=== PATIENT | female | born 1975 | race Caucasian/White ===

== ENCOUNTER 2019-03-27 13:37 | Emergency (ER) | payer BC, OTHER ==
[2019-03-27 13:43] VITALS: BP 131/85; PULSE 81; RESP 18; TEMP 97.6
--- NOTE | 2019-03-27 13:54 | ED ---
General Adult HPI - General Chief complaint: Recheck/Abnormal Lab/Rx Stated complaint: [facility]-Needlestick Time Seen by Provider: 03/27/19 13:42 Source: patient, RN notes reviewed Mode of arrival: ambulatory Limitations: no limitations - History of Present Illness Initial comments: 43-year-old female presented for needlestick. Patient states she works at [employer] was given flu shots. Patient states that she given a shot 1 over the Band-Aid on and states that she poked her left hand. Patient states is more an abrasion across her hand. Patient states she is unsure when her last tetanus was. No reported communicable diseases from patient. Patient sent here for testing. - Related Data Home Medications Medication Instructions Recorded Confirmed No Known Home Medications 03/27/19 03/27/19 Allergies Allergy/AdvReac Type Severity Reaction Status Date / Time codeine Allergy Nausea & Verified 03/27/19 14:08 Vomiting Review of Systems ROS Statement: Those systems with pertinent positive or pertinent negative responses have been documented in the HPI. ROS Other: All systems not noted in ROS Statement are negative. Past Medical History Past Medical History: No Reported History History of Any Multi-Drug Resistant Organisms: None Reported Past Surgical History: No Surgical Hx Reported Past Psychological History: No Psychological Hx Reported Smoking Status: Never smoker Past Alcohol Use History: None Reported Past Drug Use History: None Reported General Exam Limitations: no limitations General appearance: alert, in no apparent distress Head exam: Present: atraumatic, normocephalic, normal inspection Respiratory exam: Present: normal lung sounds bilaterally. Absent: respiratory distress, wheezes, rales, rhonchi, stridor Cardiovascular Exam: Present: regular rate, normal rhythm, normal heart sounds. Absent: systolic murmur, diastolic murmur, rubs, gallop, clicks Extremities exam: Present: other (Abrasion noted the left hand by the index finger) Skin exam: Present: warm, dry, intact, normal color. Absent: rash Course Vital Signs 03/27/19 13:39 Temperature 97.6 F Pulse Rate 81 Respiratory 18 Rate Blood Pressure 131/85 O2 Sat by Pulse 100 Oximetry Medical Decision Making - Medical Decision Making Patient had rapid HIV, hepatitis testing. Patient up-to-date on tetanus. Patient declines HIV prophylaxis. Disposition Clinical Impression: Needlestick injury accident Disposition: HOME SELF-CARE Condition: Stable Instructions (If sedation given, give patient instructions): Needle Stick Injuries (ED) Additional Instructions: Please return to the Emergency Department if symptoms worsen or any other concerns. Is patient prescribed a controlled substance at d/c from ED?: No Referrals: Sebas Farris DO [Primary Care Provider] - 1-2 days Time of Disposition: 13:54
[2019-03-27] MEDS ORDERED: DIPH,PERTUS(ACELL)TETVAC-LF 0.5 ML VIAL IM ONE (14:08)
[2019-03-27 19:44] LABS: Hepatitis B Surface AB- Quant 33.5 mIU/mL; Hepatitis B Surface Antibody Reactive (Non-Reactive); Hepatitis C IgG Antibody Non-Reactive (Non-Reactive)
[2019-03-27 20:21] LABS: HIV 1 AB Non-Reactive (Non-Reactive); HIV 2 AB Non-Reactive (Non-Reactive); HIV AB P24 Non-Reactive (Non-Reactive); HIV P24 AG Non-Reactive (Non-Reactive)
== END 2019-03-27 14:28 | disposition home or self-care (01) ==
LOC: EC 13:37
DX: S60.512A Abrasion of left hand, initial encounter (principal); Z77.21 Contact with and (suspected) exposure to potentially hazardous body fluids; Z88.5 Allergy status to narcotic agent; W46.0XXA Contact with hypodermic needle, initial encounter; Y92.69 Other specified industrial and construction area as the place of occurrence of the external cause; Y99.0 Civilian activity done for income or pay
CPT/HCPCS: 36415; 86706; 86803; 87390; 99283

== ENCOUNTER → 2020-05-12 | Outpatient (CLI) | payer BC ==
--- NOTE | 2020-05-13 07:52 | MM ---
Reason for exam: screening (asymptomatic). Baseline mammogram. History: Family history of breast cancer in 2 paternal cousins. Took hormonal contraceptives for 2 months. Physical Findings: Nurse did not find any significant physical abnormalities on exam. MG Screening Mammo w CAD Bilateral CC, MLO, and XCCL view(s) were taken. The breast tissue is heterogeneously dense. This may lower the sensitivity of mammography. Finding: There is a 6 mm equal density (isodense), obscured mass in the upper outer quadrant of the left breast. These results were verbally communicated with the patient and result sheet given to the patient on 05/12/20. ASSESSMENT: Incomplete: need additional imaging evaluation, BI-RAD 0 RECOMMENDATION: Special view mammogram of the left breast.
--- NOTE | 2020-05-13 07:52 | MM ---
Reason for exam: additional evaluation requested from abnormal screening. History: Family history of breast cancer in 2 paternal cousins. Took hormonal contraceptives for 2 months. Physical Findings: Breast exam preformed at baseline screening. MG Work Up Mamm w CAD LT Spot compression CC, spot compression MLO, and LM view(s) were taken of the left breast. The breast tissue is heterogeneously dense. This may lower the sensitivity of mammography. There is a 6 mm equal density (isodense), obscured mass in the upper outer quadrant of the left breast. These results were verbally communicated with the patient and result sheet given to the patient on 05/12/20. ASSESSMENT: Incomplete: need additional imaging evaluation, BI-RAD 0 RECOMMENDATION: Ultrasound of the left breast.
--- NOTE | 2020-05-13 07:56 | USB ---
Reason for exam: additional evaluation requested from abnormal screening. History: Family history of breast cancer in 2 paternal cousins. Took hormonal contraceptives for 2 months. US Breast Limited LT Left limited breast ultrasound including focal area of concern, retroareolar and axilla demonstrates a 7 x 5 x 8mm lobular, mixed lesion at 2 o'clock and a 6 x 4 x 7mm lobular, cystic cluster at 3 o'clock. These results were verbally communicated with the patient and result sheet given to the patient on 05/12/20. ASSESSMENT: Suspicious, BI-RAD 4 RECOMMENDATION: Ultrasound core biopsy of the left breast. (2 o'clock) Called Dr. Bee's office with mammographic findings and has scheduled an appointment for the patient for 05/27/20 at 4:[address] White. Biopsy scheduled for 05/20/20 at 12:00. PRELIMINARY REPORT CALLED AND FAXED TO DR. WHITE ON 05/13/20.
== END | disposition home or self-care (01) ==
LOC: RADMAMWWP 14:11
PROVIDERS: ATTEND Obstetrics & Gynecology
DX: Z12.31 Encounter for screening mammogram for malignant neoplasm of breast (principal); R92.8 Other abnormal and inconclusive findings on diagnostic imaging of breast
CPT/HCPCS: 77065; 77067

== ENCOUNTER → 2020-05-20 | Day surgery (SDC) | payer BC ==
[2020-05-20 12:14] VITALS: RESP 16
[2020-05-20 13:53] VITALS: BP 141/82; PULSE 70; TEMP 98.5
--- NOTE | 2020-05-20 14:56 | USB ---
EXAMINATION TYPE: US biopsy breast VAD LT DATE OF EXAM: 05/20/2020 CLINICAL HISTORY: R94.5 abnormal liver function tests. TECHNIQUE: Ultrasound guided core biopsy of left breast. COMPARISON: Ultrasound 05/12/2020 FINDINGS: The procedure of ultrasound guided core biopsy was explained to the patient. Benefits, alternatives, and risks were discussed. An informed consent was then obtained. The patient was placed in supine positioning for imaging and for the procedure. The overlying skin was prepped and draped in usual sterile fashion. Lidocaine was used as anesthetic into the skin and subcutaneous tissue up to area of concern in the left breast. Under ultrasound guidance, a 12-gauge vacuum assisted biopsy gun device was used to obtain 3 core samples. Following this, a biopsy clip was left in lesion. The patient tolerated the procedure well without any immediate complication. The patient was kept in the radiology department for short stay after the procedure and then discharged home in stable condition. IMPRESSION: Successful, uncomplicated ultrasound guided core biopsy of area of concern in the left breast, full pathology results to follow. Pathology Results: Benign LEFT BREAST, TWO O'CLOCK, ULTRASOUND GUIDED CORE BIOPSY: Fibroadenoma and background proliferative fibrocystic changes including sclerosing adenosis, cysts and apocrine metaplasia. Recommendation Follow up mammogram of the left breast in 6 months. EFFIE
--- NOTE | 2020-05-21 09:45 | MM ---
Reason for exam: additional evaluation requested from abnormal screening. Last mammogram was performed less than 1 month ago. History: Family history of breast cancer in 2 paternal cousins. Took hormonal contraceptives for 2 months. MG Diagnostic Mammo LT Wo CAD CC and LM view(s) were taken of the left breast. Prior study comparison: May 12, 2020, bilateral MG screening mammo w CAD. May 12, 2020, left breast MG work up mamm w CAD LT. ASSESSMENT: Post procedure mammogram for marker placement RECOMMENDATION: Ultrasound of the left breast in 6 months. PENDING PATHOLOGY RESULTS.
== END ==
LOC: RADUSWWP 11:49
PROVIDERS: ATTEND Surgery
DX: D24.2 Benign neoplasm of left breast (principal); N60.22 Fibroadenosis of left breast; N60.82 Other benign mammary dysplasias of left breast; N60.12 Diffuse cystic mastopathy of left breast; Z80.3 Family history of malignant neoplasm of breast; Z79.3 Long term (current) use of hormonal contraceptives
CPT/HCPCS: 88305; 77065; 19083; A4648; J2001

== ENCOUNTER → 2020-07-16 | Outpatient (CLI) | payer BC ==
--- NOTE | 2020-07-22 13:58 | MR ---
MR abdomen with and without contrast HISTORY: Portal vein thrombosis Multiplanar multisequence and postcontrast images obtained through the abdomen following [address] IV. Correlation to CT abdomen pelvis 07/05/2020 from outside institution Cystic foci within the liver are again noted, lesions. T2 bright, at the lateral segment of the left lobe cystic focus is multilocular and measures 2.5 cm in greatest dimension, T1 hypointense. Post con trast images show left portal vein thrombosis, right portal vein and main portal vein are patent, hep atic veins are patent. Differences in signal intensity within the left lobe of the liver likely refle ct the orbital vein thrombosis. There is no evident mass. Gallbladder is normal. Lung bases show no effusion. Aorta shows normal enhancement. There is no ascites. The spleen is not e nlarged. Adrenal glands, pancreas, kidneys are stable and right kidney shows a prominent extrarenal p gladys. No retroperitoneal adenopathy. No evident bowel obstruction. IMPRESSION: Findings are stable compared to previous exam. Left portal vein shows stable thrombosis sonya romero.
== END | disposition home or self-care (01) ==
LOC: RADMRIMAIN 13:43
PROVIDERS: ATTEND Nurse Practitioner Adult Health
DX: I81 Portal vein thrombosis (principal)
CPT/HCPCS: 74183; A9585

== ENCOUNTER → 2020-12-01 | Outpatient (CLI) | payer BC ==
--- NOTE | 2020-12-01 14:50 | USB ---
EXAMINATION TYPE: US breast limited LT DATE OF EXAM: 12/01/2020 COMPARISON: 05/20/2020, 05/12/2020 CLINICAL HISTORY: R92.8 ABN MANMMO. Findings: In the left breast at 2:00, there is a 0.6 x 0.5 x 0.6 cm ovoid hypoechoic mass which has slightly de creased in size since the prior examination at which point it measured 0.7 x 0.5 x 0.8 cm and was pre viously biopsied with benign results. In the left breast at 3:00, there is an unchanged cluster of cysts. IMPRESSION: No sonographic evidence for malignancy. BI-RADS 2, benign. Recommendation: Bilateral screening mammogram is recommended in May 2021.
== END | disposition home or self-care (01) ==
LOC: RADUSWWP 13:28
PROVIDERS: ATTEND Surgery
DX: R92.8 Other abnormal and inconclusive findings on diagnostic imaging of breast (principal)

== ENCOUNTER → 2021-04-09 | Outpatient (CLI) | payer BC ==
--- NOTE | 2021-04-10 09:49 | CT ---
EXAMINATION TYPE: CT abdomen w con DATE OF EXAM: 04/09/2021 COMPARISON: MR abdomen 07/16/2020, CT 07/05/2020 HISTORY: portal vein thrombosis CT DLP: 1222.5 mGycm Automated exposure control for dose reduction was used. TECHNIQUE: Helical acquisition of images was performed from the lung bases through the top of iliac crest to include entire abdomen. CONTRAST: Performed with Oral Contrast and with IV Contrast, patient injected with 100 mL of Isovue 300. FINDINGS: LUNG BASES: No significant abnormality is appreciated. LIVER/GB: No significant interval change is appreciated. Cystic foci again noted, left lobe of the li roderick appears somewhat atrophic, left portal vein is not seen as on prior PANCREAS: No significant abnormality is seen. SPLEEN: No significant abnormality is seen. ADRENALS: No significant abnormality is seen. KIDNEYS: No significant abnormality is seen. BOWEL: No significant abnormality is seen. LYMPH NODES: No significant abnormality is appreciated. OSSEOUS STRUCTURES: No significant abnormality is seen. FREE AIR: No Free Air visible ASCITES: None visible. RETROPERITONEAL ADENOPATHY: No Retroperitoneal Adenopathy visible. OTHER: Visualized portions of the uterus are bulky, there is a cystic focus within the left adnexal r egion measuring 2.6 cm as well as a large cystic focus associated with the myometrium which is partia lly visualized, similar focus seen on prior CT. IMPRESSION: INDETERMINATE FOCI ASSOCIATED WITH THE UTERUS AND OVARY, SOMEWHAT ATYPICAL APPEARANCE FOR FIBROIDS, C ONSIDER PELVIC MRI, SUPERVISOR VENEER CONSULT. THE LIVER SHOWS A STABLE APPEARANCE.
== END | disposition home or self-care (01) ==
LOC: RADCTMAIN 16:44
PROVIDERS: ATTEND Internal Medicine Hematology & Oncology
DX: I81 Portal vein thrombosis (principal); D25.9 Leiomyoma of uterus, unspecified
CPT/HCPCS: 74160; Q9967

== ENCOUNTER → 2021-05-31 | Outpatient (CLI) | payer BC ==
[2021-05-31 19:36] LABS: HCT 43.6 % (37.2-46.3); HGB 13.7 g/dL (12.0-15.0); MCH 31.1 pg (27.0-32.0); MCHC 31.4 g/dL (32.0-37.0); MCV 99.1 fL (80.0-97.0); Mean Platelet Volume 9.4 fL (9.5-12.2); Platelet Count 351 X 10*3/uL (140-440); RDW 13.1 % (11.5-14.5); WBC 7.58 X 10*3/uL (4.50-10.00)
[2021-05-31 22:21] LABS: % Iron Saturation 49.36 (12.00-45.00); Chol/HDL Ratio 3.49 Ratio; Iron 123 ug/dL (50-170); LDL Cholesterol,Calculated 131.9 mg/dL (0.0-131.0); Total Iron Binding Capacity 249 ug/dL (228-460)
[2021-05-31 22:22] LABS: ALT 16 U/L (8-44); AST 16 U/L (13-35); African American GFR (CKD) 111.5 (60.0-200.0); Albumin 4.3 g/dL (3.8-4.9); Albumin/Globulin Ratio 2.09 (1.60-3.17); Alkaline Phosphatase 80 U/L (41-126); BUN/Creat Ratio 17.48 Ratio (12.00-20.00); Blood Urea Nitrogen 13.2 mg/dL (9.0-27.0); Calcium 8.9 mg/dL (8.7-10.3); Carbon Dioxide 21.7 mmol/L (20.0-27.5); Chloride 107 mmol/L (96-109); Globulin 2.1 g/dL (1.6-3.3); Glucose 92 mg/dL (70-110); Non-African American GFR(CKD) 96.2 (60.0-200.0); Potassium 4.2 mmol/L (3.5-5.5); Sodium 140 mmol/L (135-145); Total Protein 6.4 g/dL (6.2-8.2)
== END | disposition home or self-care (01) ==
LOC: LABWHC1 11:02
PROVIDERS: ATTEND Family Medicine
DX: Z00.00 Encounter for general adult medical examination without abnormal findings (principal)
CPT/HCPCS: 36415; 80053; 80061; 82728; 83036; 83540; 83550; 84443; 85027

== ENCOUNTER → 2021-09-03 | Outpatient (CLI) | payer BC ==
[2021-09-03 17:57] LABS: Basophils # (A) 0.06 X 10*3/uL (0.00-0.10); Basophils % (A) 0.6 %; Eosinophils # (A) 0.07 X 10*3/uL (0.04-0.35); Eosinophils % (A) 0.7 %; HCT 45.2 % (37.2-46.3); HGB 14.9 g/dL (12.0-15.0); Immature Grans, Automated 0.3 %; Lymphocytes # (A) 2.39 X 10*3/uL (0.90-5.00); Lymphocytes % (A) 24.5 %; MCH 31.7 pg (27.0-32.0); MCV 96.2 fL (80.0-97.0); Mean Platelet Volume 9.2 fL (9.5-12.2); Monocytes # (A) 0.65 X 10*3/uL (0.20-1.00); Monocytes % (A) 6.7 %; NRBC Per 100 WBC 0 /100 WBCS (0.0-0.0); Neutrophils # (A) 6.54 X 10*3/uL (1.80-7.70); Neutrophils % (A) 67.2 %; Platelet Count 374 X 10*3/uL (140-440); RDW 12.2 % (11.5-14.5); WBC 9.74 X 10*3/uL (4.50-10.00)
== END | disposition home or self-care (01) ==
LOC: LABWHC1 12:20
PROVIDERS: ATTEND Obstetrics & Gynecology
DX: Z01.812 Encounter for preprocedural laboratory examination (principal); N92.1 Excessive and frequent menstruation with irregular cycle
CPT/HCPCS: 36415; 85025

== ENCOUNTER 2021-09-10 07:39 | Day surgery (SDC) | payer BC ==
[2021-09-07 16:00] VITALS: BMI 38.0
[~2021-09-10 07:39] MED LIST: DEXAMETHASONE SOD PHOSPHATE 4 MG/ML 1 ML VIAL IV ONE; HYDROmorphone 0.5 MG/0.5 ML SYRINGE IVP PRN; LACTATED RINGERS 1,000 ML IV SCH; LIDOCAINE 1% (10MG/ML) FOR IV START INTRADERMA PRN; MIDAZOLAM 2 MG/2 ML VIAL IV PRN; ONDANSETRON 4 MG/2 ML VIAL IVP ONE; Pre Op ABX Message 1 EACH MISC MISCELLANE ONE
[2021-09-10 08:06] VITALS: RESP 16
[2021-09-10] MEDS ORDERED: SCOPOLAMINE 1.5MG/72HR PATCH TRANSDERM ONE (08:19)
[2021-09-10] MEDS ORDERED: LIDOCAINE 1% INJ 10MG/ML (20 ML MDV) ONE (09:20)
[2021-09-10] MEDS ORDERED: NEOSTIGMINE 1 MG/ML 10 ML VIAL ONE (09:20)
[2021-09-10] MEDS ORDERED: MIDAZOLAM 2 MG/2 ML VIAL ONE (09:20)
[2021-09-10] MEDS ORDERED: GLYCOPYRROLATE 0.2 MG/ML 2 ML VIAL ONE (09:20)
[2021-09-10] MEDS ORDERED: diphenhydrAMINE 50 MG/ML 1 ML VIAL ONE (09:20)
[2021-09-10] MEDS ORDERED: fentaNYL (PF) 50 MCG/ML 2 ML AMP ONE (09:20)
[2021-09-10] MEDS ORDERED: PROPOFOL 10 MG/ML 20 ML VIAL IV ONE (09:20)
[2021-09-10] MEDS ORDERED: SUCCINYLCHOLINE CHLORIDE 100 MG/5 ML SYR IV ONE (09:20)
[2021-09-10] MEDS ORDERED: KETOROLAC 15 MG/ML 1 ML VIAL ONE (09:20)
[2021-09-10] MEDS ORDERED: ROCURONIUM 10 MG/ML (5 ML VIAL) IV ONE (09:20)
[2021-09-10] MEDS ORDERED: BUPIVACAINE (PF) 0.25% 30 ML VIAL SQ ONE ×3 (09:43→10:01)
[2021-09-10] MEDS ORDERED: IBUPROFEN 600 MG TAB PO PRN (10:22)
[2021-09-10] MEDS ORDERED: SIMETHICONE 80 MG CHEWABLE PO PRN (10:22)
[2021-09-10] MEDS ORDERED: METOCLOPRAMIDE 5 MG/ML 2 ML VIAL IVP PRN (10:22)
[2021-09-10] MEDS ORDERED: diphenhydrAMINE 50 MG/ML 1 ML VIAL IVP PRN (10:22)
[2021-09-10] MEDS ORDERED: ONDANSETRON 4 MG/2 ML VIAL IVP PRN (10:22)
[2021-09-10] MEDS ORDERED: KETOROLAC 15 MG/ML 1 ML VIAL IVP PRN (10:22)
[2021-09-10 10:31] VITALS: TEMP 98.7
--- NOTE | 2021-09-10 10:33 | P.OP ---
Date of Procedure: 09/10/21 Preoperative Diagnosis: #1. Menometrorrhagia #2. Dysmenorrhea #3. Fibroid uterus #4. Undesired fertility Postoperative Diagnosis: Same Procedure(s) Performed: #1. Laparoscopic bilateral tubal occlusion with Filshie clips #2. Diagnostic hysteroscopy #3. D&C in #4. NovaSure endometrial ablation Anesthesia: GETA Surgeon: Michael Bee Estimated Blood Loss (ml): 5 IV fluids (ml): 400 Urine output (ml): 200 Pathology: other (Endometrial curettings) Condition: stable Disposition: PACU Operative Findings: After pelvic examination demonstrated roughly 4-5 week midplane uterus with a palpable roughly 5 cm right fundal probable subserosal fibroid with normal adnexa bilaterally. Intraoperatively, this was confirmed with laparoscope. There was a roughly 4-5 cm right fundal fibroid which was subserosal in nature with an otherwise relatively normal-appearing uterus below it. Bilateral tubes and ovaries were normal and a Filshie clip was placed firmly across the isthmic portion of each fallopian tube. There is no pathology noted otherwise in the pelvis to include endometriosis. The small bowel, large bowel, liver, gallbladder, and diaphragm appeared normal to inspection. The appendix was not seen. The uterus sounded to approximately 9 cm with a cervical length of 3.5 cm. The hysteroscope demonstrated moderate shaggy endometrium. The tubal ostia were never clearly seen but there was no evidence of any pathology aside from the shaggy endometrium. As a result, endometrial curettage was carried out and the curettings sent to pathology for diagnosis. The settings for the NovaSure tool over a length of 5.5 cm, a width of 4.2 cm for a total power 127 W. After a run time of 55 seconds, the patient read "procedure complete." The postprocedural result appeared excellent. The patient is a poor candidate for vaginal hysterectomy and, should it become necessary, would best benefit from a da Jj approach. Description of Procedure: Patient was prepped and draped in usual fashion after general endotracheal anesthesia was administered by anesthesiologist. A speculum was placed in the anterior lip of the cervix grasped with a tilted tenaculum allowing placement of an acorn cannula for manipulation. The bladder was draining approximately 200 mL of clear sigrid urine. Attention was then turned to the abdomen where a roughly 5 mm incision was made in a vertical fold of the umbilicus allowing insertion of a 5 mm optical trocar under direct visualization with initial difficulty in preperitoneal placement but was ultimately able to be placed intraperitoneally. A pneumoperitoneum was instilled and Trendelenburg assisting utilized. A site was selected in the midline approximate 4-5 cm above the umbilicus where an 8 mm incision was made in the transverse plane allowing insertion of an 8 mm optical trocar under direct vision station without difficulty. The blunt probe and Trendelenburg positioning were utilized to sweep the bowel from the pelvis and the findings are as noted above with a roughly 5 cm right fundal subserosal fibroid above the level of the fallopian tube with a roughly normal appearing uterus below the fibroid. The tubes and ovaries were normal to inspection as was the rest the pelvis. The probe was replaced with a Filshie clip applicator which was utilized to place a Filshie clip firmly across the isthmic portion of each fallopian tube approximately 2-3 cm from the cornu on each side. The remainder of the abdomen was explored with normal findings as noted above. Ports and the ports removed. The incisions were closed with interrupted subcuticular stitches of 4-0 Vicryl followed by Steri-Strips and Band-Aids. Prior to placement of the sutures and Band-Aids, a total of 10 mL of quarter percent Marcaine without epinephrine was equally infused between the 2 incisions. Attention was returned to the vagina where a weighted speculum was placed and the acorn cannula removed. The uterus and cervix are sounded to 9 cm and 3.5 cm respectively. Serial dilation was carried out to admit the diagnostic hysteroscope which was placed into the cavity and then the cavity distended with saline. The findings were as noted above with a moderate amount of shaggy endometrial tissue noted and a possible polyp noted near the cornu on the right lateral side. The tubal ostia were never clearly seen but centimeters cavity appeared otherwise normal. All instrumentation was then removed and the polyp forceps introduced which was able to remove a small amount of tissue. The decision was made proceed with curettage and a medium sharp curet was placed into the endometrial cavity which was then curetted thoroughly and circumferentially onto a Telfa placed in the vagina. Minimal tissue was returned. The Telfa was then passed for pathological diagnoses and the NovaSure tool placed into the endometrial cavity, opened, and seated well. The settings were as noted above with a length of 5.5 cm, a width of 4.2 cm for a total power 127 W. The cavity check was attempted and passed without difficulty and the tool was enabled. The run was started and, after a run time of 55 seconds, the base unit read "procedure complete." The 2 was closed, removed, and discarded and the diagnostic scope replaced within the cavity. The result appeared to be excellent. All instrumentation was then removed. There was no ongoing bleeding from either the cervix or the tenaculum sites. Estimated blood loss for the case was approximate 5 mL. The patient is a poor candidate for vaginal hysterectomy and would best benefit from a da Jj approa ch should it become necessary in the future. All sponge, instrument, needle counts were correct. The patient tolerated the procedure well and proceeded to the recovery room in stable condition.
[2021-09-10] MEDS: LACTATED RINGERS 1,000 ML IV SCH ×2 (11:01→11:23)
[2021-09-10 12:31] VITALS: BP 104/60; PULSE 65
== END 2021-09-10 12:59 | disposition home or self-care (01) ==
LOC: OR 07:39
PROVIDERS: ATTEND Obstetrics & Gynecology
DX: Z30.2 Encounter for sterilization (principal); N92.1 Excessive and frequent menstruation with irregular cycle; D25.9 Leiomyoma of uterus, unspecified
CPT/HCPCS: 58670; 58563; 81025; J2250; J1200; J1100; J2710; J2405; J2001; J3010; J1885; J0330; J2704; J1170; 88305

== ENCOUNTER → 2022-02-16 | Outpatient (CLI) | payer BC ==
--- NOTE | 2022-02-18 11:24 | MM ---
Reason for Exam: Screening (asymptomatic). Last mammogram was performed 1 year(s) and 9 month(s) ago. Patient History: Menarche at age 12. First Full-Term at age 27. Hormonal Contraceptives for 2 months. 05/20/2020, Benign Core Biopsy on the left side. Paternal cousin had breast cancer. Paternal cousin had breast cancer. Risk Values: Bonnie 5 year model risk: 1.6%. NCI Lifetime model risk: 13.9%. Prior Study Comparison: 05/12/2020 Bilateral Screening Mammogram, [facility]. 05/12/2020 Left Diagnostic Mammogram, [facility]. 05/20/2020 Left Diagnostic Mammogram, [facility]. Tissue Density: The breast tissue is heterogeneously dense. This may lower the sensitivity of mammography. Findings: Analyzed By CAD. Previous mammotome biopsy in the left breast. No discrete abnormality. Overall Assessment: Benign, BI-RAD 2 Management: Screening Mammogram of both breasts in 1 year. A clinical breast exam by your physician is recommended on an annual basis and results should be correlated with mammographic findings. Electronically signed and approved by: Stefano Ramirez M.D. Radiologist
== END | disposition home or self-care (01) ==
LOC: RADMAMWWP 16:01
PROVIDERS: ATTEND Obstetrics & Gynecology
DX: Z12.31 Encounter for screening mammogram for malignant neoplasm of breast (principal); Z80.3 Family history of malignant neoplasm of breast
CPT/HCPCS: 77063; 77067

== ENCOUNTER → 2022-06-10 | Outpatient (CLI) | payer BC ==
[2022-06-10 19:10] LABS: Basophils # (A) 0.07 X 10*3/uL (0.00-0.10); Basophils % (A) 0.5 %; Eosinophils # (A) 0.01 X 10*3/uL (0.04-0.35); Eosinophils % (A) 0.1 %; HCT 46.5 % (37.2-46.3); HGB 15.1 g/dL (12.0-15.0); Immature Grans, Automated 0.5 %; Lymphocytes # (A) 3.13 X 10*3/uL (0.90-5.00); Lymphocytes % (A) 23.7 %; MCH 31.5 pg (27.0-32.0); MCHC 32.5 g/dL (32.0-37.0); MCV 96.9 fL (80.0-97.0); Mean Platelet Volume 9.4 fL (9.5-12.2); Monocytes # (A) 0.72 X 10*3/uL (0.20-1.00); Monocytes % (A) 5.5 %; NRBC Per 100 WBC 0 /100 WBCS (0.0-0.0); Neutrophils # (A) 9.22 X 10*3/uL (1.80-7.70); Neutrophils % (A) 69.7 %; Platelet Count 364 X 10*3/uL (140-440); RDW 12.5 % (11.5-14.5); WBC 13.21 X 10*3/uL (4.50-10.00)
[2022-06-10 20:13] LABS: Chol/HDL Ratio 3.85 Ratio; LDL Cholesterol,Calculated 159.5 mg/dL (0.0-131.0)
[2022-06-10 20:14] LABS: ALT 25 U/L (8-44); AST 32 U/L (13-35); African American GFR (CKD) 107.1 (60.0-200.0); Albumin 4.5 g/dL (3.8-4.9); Albumin/Globulin Ratio 1.92 (1.60-3.17); Alkaline Phosphatase 70 U/L (41-126); BUN/Creat Ratio 17.53 Ratio (12.00-20.00); Blood Urea Nitrogen 13.6 mg/dL (9.0-27.0); Carbon Dioxide 20.2 mmol/L (20.0-27.5); Chloride 106 mmol/L (96-109); Globulin 2.3 g/dL (1.6-3.3); Glucose 75 mg/dL (70-110); Non-African American GFR(CKD) 92.4 (60.0-200.0); Potassium 4.4 mmol/L (3.5-5.5); Sodium 140 mmol/L (135-145); Total Protein 6.8 g/dL (6.2-8.2)
== END | disposition home or self-care (01) ==
LOC: LABWHC1 09:53
PROVIDERS: ATTEND Nurse Practitioner Family
DX: Z00.00 Encounter for general adult medical examination without abnormal findings (principal); K21.9 Gastro-esophageal reflux disease without esophagitis
CPT/HCPCS: 36415; 80053; 80061; 83036; 84439; 84443; 85025

== ENCOUNTER → 2023-02-21 | Outpatient (CLI) | payer BC, OTHER ==
--- NOTE | 2023-02-22 16:09 | MM ---
Reason for Exam: Screening (asymptomatic). Last screening mammogram was performed 12 month(s) ago. Patient History: Menarche at age 12. First Full-Term at age 27. Hormonal Contraceptives for 2 months. 05/20/2020, Benign Core Biopsy on the left side. Paternal cousin had breast cancer. Paternal cousin had breast cancer. Risk Values: Bonnie 5 year model risk: 1.5%. NCI Lifetime model risk: 13.6%. Prior Study Comparison: 05/12/2020 Left Diagnostic Mammogram, [facility]. 05/20/2020 Left Diagnostic Mammogram, [facility] 02/16/2022 Bilateral MG 3D screening mammo w/cad, [facility]. Tissue Density: The breast tissue is heterogeneously dense. This may lower the sensitivity of mammography. Findings: Analyzed By CAD. Pattern appears symmetrical and stable. A core marker is within the left breast. There is a oval density with obscured margins within the 9:00 middle position right breast. This measures 0.8 cm and is located 6 cm from the nipple. Additional evaluation with ultrasound is recommended. Diagnostic imaging may be required. Left breast: No suspicious groups of microcalcifications, spiculated or lobular masses, architectural distortion or other secondary signs of malignancy are mammographically apparent. Overall Assessment: Incomplete: need additional imaging evaluation, BI-RAD 0 Management: Diagnostic Breast Ultrasound of the right breast. A negative mammogram report should not preclude additional follow up of suspicious palpable abnormalities. Patient should continue monthly self breast exam. A clinical breast exam by your physician is recommended on an annual basis and results should be correlated with mammographic findings. Electronically signed and approved by: Choco Rivera D.O. Radiologis
== END | disposition home or self-care (01) ==
LOC: RADMAMWWP 14:34
PROVIDERS: ATTEND Family Medicine
DX: Z12.31 Encounter for screening mammogram for malignant neoplasm of breast (principal); Z80.3 Family history of malignant neoplasm of breast
CPT/HCPCS: 77063; 77067

== ENCOUNTER → 2024-04-12 | Outpatient (CLI) | payer OTHER ==
--- NOTE | 2024-04-12 11:06 | CA ---
Exercise Stress Test Report Name: Michell Sanchez Exam Date: 04/12/2024 09:08 Exam Location: [place] Stress Ht (in): 64 Wt (lb): 210 BSA: 2.00 Ordering Phys: Sebas Farris DO Referring Phys: Marti Mishra [facility] Technologist: Blaise Jacobson Age: 48 Gender: F : 1975 Procedure CPT: Indications: R00.2 palpitations ICD-10 Codes: Patient History: CHEST PAIN, PALPITATIONS, HYPERCHOLESTEROLEMIA, FAMILY HX OF HEART DISEASE Medications: LIPITOR, CYMBALTA, TYLENOL, BACLOFEN, XANAX Meds past 24 hrs: Pretest Chest Pain: STRESS TEST Jacky Protocol Exercise Duration (min:sec): 10:[address] Depressions (mm): Angina Score: Larry Score: Resting HR (bpm): 98 Peak HR (bpm): 163 Resting BP (mmHg): 121 / 76 Peak BP (mmHg): 183 / 95 MPHR: 173 Target HR: 147 % MPHR: 94 METS: 12.1 Total Dose: Peak Dose: Atropine: Double Product: 03244 BP Response: Stress Termination: MAX EXERTION/TARGET HR Stress Symptoms: CHEST HEAVINESS IN RECOVERY Stress Summary: ECG ANALYSIS Resting ECG: Normal sinus rhythm normal axis normal intervals Stress ECG: Patient exercised on Jacky protocol for 10 and half minutes achieving 12 METS 85% of predicted maximal heart rate without chest pain or diagnostic ST segment depression CONCLUSIONS Excellent exercise tolerance Negative stress test by EKG criteria Dr. Humberto Whyte MD (Electronically Signed) Final Date: 12 April 2024 11:05
--- NOTE | 2024-04-12 11:08 | CA ---
Transthoracic Echo Report Name: Michell Sanchez Age: 48 Gender: F : 1975 Exam Date: 04/12/2024 08:40 Exam Location: [facility] Ht (in): 64 Wt (lb): 210 Ordering Physician: Sebas Farris DO Attending/Referring Phys: Marti Mishra NPC Investigations Manager Fela Oconnell RDCS Procedure CPT: Indications: R07.9 Cardiac Hx: Technical Quality: Fair Contrast 1: Total Dose (mL): Contrast 2: Total Dose (mL): MEASUREMENTS (Male / Female) Normal Values 2D ECHO LV Diastolic Diameter PLAX 4.6 cm 4.2 - 5.9 / 3.9 - 5.3 cm LV Systolic Diameter PLAX 2.5 cm IVS Diastolic Thickness 1.1 cm 0.6 - 1.0 / 0.6 - 0.9 cm LVPW Diastolic Thickness 1.1 cm 0.6 - 1.0 / 0.6 - 0.9 cm LV Relative Wall Thickness 0.5 RV Internal Dim ED PLAX 2.1 cm LA Systolic Diameter LX 3.4 cm 3.0 - 4.0 / 2.7 - 3.8 cm LV Diastolic Volume MOD BP 40.5 cm??? 67 - 155 / 56 - 104 cm??? LV Systolic Volume MOD BP 18.8 cm??? 22 - 58 / 19 - 49 cm??? LV Ejection Fraction MOD BP 53.5 % >= 55 % LV Cardiac Index MOD BP 850.1 cm???/min???m??? LV Diastolic Volume MOD 4C 39.7 cm??? LV Systolic Volume MOD 4C 18.4 cm??? LV Ejection Fraction MOD 4C 53.6 % LV Cardiac Index MOD 4C 834.8 cm???/min???m??? LV Diastolic Length 4C 6.5 cm LV Systolic Length 4C 5.6 cm LV Diastolic Volume MOD 2C 41.0 cm??? LV Systolic Volume MOD 2C 18.8 cm??? LV Ejection Fraction MOD 2C 54.1 % LV Cardiac Index MOD 2C 870.0 cm???/min???m??? LV Diastolic Length 2C 6.4 cm LV Systolic Length 2C 5.4 cm M-MODE Aortic Root Diameter MM 2.9 cm LA Systolic Diameter MM 3.2 cm LA Ao Ratio MM 1.1 AV Cusp Separation MM 1.7 cm DOPPLER Mitral E Point Velocity 73.6 cm/s Mitral A Point Velocity 91.7 cm/s Mitral E to A Ratio 0.8 MV Deceleration Time 271.5 ms MV E' Velocity 6.7 cm/s Mitral E to MV E' Ratio 10.9 TR Peak Velocity 240.6 cm/s TR Peak Gradient 23.1 mmHg Right Ventricular Systolic Press 33.3 mmHg FINDINGS Left Ventricle Left ventricular ejection fraction is estimated at 55-60%. Mildly increased septal wall thickness. Mildly increased posterior wall thickness. Left ventricular cavity size normal. No obvious regional wall motion abnormalities. Right Ventricle Normal right ventricular size and function. Right ventricular systolic pressure within normal limits. Right Atrium Normal right atrial size. Left Atrium Normal left atrial size. Mitral Valve Structurally normal mitral valve. Trace mitral regurgitation. No mitral stenosis. Aortic Valve Trileaflet aortic valve. No aortic valve stenosis or regurgitation. Tricuspid Valve Structurally normal tricuspid valve. Trace to mild tricuspid regurgitation. No tricuspid stenosis. Pulmonic Valve Structurally normal pulmonic valve. No pulmonic regurgitation. No pulmonic stenosis. Pericardium No pericardial or pleural effusion. Aorta Normal size aortic root and proximal ascending aorta. CONCLUSIONS Normal LV function Previewed by: Dr. Humberto Whyte MD (Electronically Signed) Final Date: 12 April 2024 11:06
--- NOTE | 2024-04-12 12:28 | MM ---
Reason for Exam: Screening (asymptomatic). Last mammogram was performed 1 year(s) and 2 month(s) ago. Patient History: Menarche at age 12. First Full-Term at age 27. Hormonal Contraceptives for 2 months. 05/20/2020, Benign Core Biopsy on the left side. Paternal cousin had breast cancer, age 47. Paternal cousin had breast cancer, age 50. Risk Values: Bonnie 5 year model risk: 1.5%. NCI Lifetime model risk: 13.4%. Prior Study Comparison: 05/20/2020 Left Diagnostic Mammogram, [facility]. 02/16/2022 Bilateral MG 3D screening mammo w/cad, [facility]. 02/21/2023 Bilateral MG 3D screening mammo w/cad, [facility]. Tissue Density: The breasts are heterogeneously dense, which may obscure small masses. Findings: Analyzed By CAD. Right breast: There is no suspicious group of microcalcifications or new suspicious mass. Left breast: There is no suspicious group of microcalcifications or new suspicious mass. Overall Assessment: Negative, BI-RAD 1 Management: Screening Mammogram of both breasts in [address] [facility] will attempt to contact patient to return for supplemental views and ultrasound if indicated. Patient should continue monthly self-breast exams. A clinical breast exam by your physician is recommended on an annual basis. This exam should not preclude additional follow-up of suspicious palpable abnormalities. Note on Bonnie scores and lifetime risk: 1. A Bonnie score greater than 3% is considered moderate risk. If this is the case, consider specialist referral to assess eligibility for a risk reducing agent. 2. If overall lifetime risk for the development of breast cancer is 20% or higher, the patient may qualify for future screening with alternating mammogram and breast MRI. [facility], , 04/12/2024 12:26 PM. Electronically signed and approved by: Nilton Griffin DO
== END | disposition home or self-care (01) ==
LOC: RADMAMWWP 07:50
PROVIDERS: ATTEND Family Medicine
DX: Z12.31 Encounter for screening mammogram for malignant neoplasm of breast (principal); R92.333 Mammographic heterogeneous density, bilateral breasts; E78.00 Pure hypercholesterolemia, unspecified; R07.9 Chest pain, unspecified; Z80.3 Family history of malignant neoplasm of breast
CPT/HCPCS: 77063; 77067; 93017; 93306

== ENCOUNTER 2024-07-05 07:25 | Day surgery (SDC) | payer OTHER ==
[2024-07-03 11:51] VITALS: BMI 35.4
[2024-07-05] MEDS: IV FLUID CONTINUATION 1,000 ML IV ONE (08:03)
[2024-07-05 08:07] VITALS: RESP 16; TEMP 98.3
[2024-07-05] MEDS: LACTATED RINGERS 1,000 ML IV SCH (08:09)
[2024-07-05] MEDS ORDERED: PROPOFOL 10 MG/ML 20 ML VIAL IV ONE (08:17)
[2024-07-05] MEDS ORDERED: LIDOCAINE 1% INJ 10MG/ML (20 ML MDV) ONE (08:17)
--- NOTE | 2024-07-05 08:41 | P.PCN ---
Date of Procedure: 07/05/24 Procedure(s) Performed: Brief history: Patient is a pleasant 48-year-old white female scheduled for an elective upper endoscopy as well as colonoscopy as a part of evaluation of longstanding history of GERD and screening for colon cancer/family history of colon cancer. Her mother was diagnosed with colon cancer at age 70. Procedure performed: Esophagogastroduodenoscopy with biopsy Colonoscopy Preoperative diagnosis: GERD Screening colon cancer and family history of colon cancer Anest[place]: [facility] [place]: After informed consent was obtained from the patient was brought into the endoscopy unit and IV sedation was administered by anesthesia under continuous monitoring. Initially upper endoscopy was done. The Olympus GF 160 video endoscope was inserted inserted into the mouth and esophagus intubated without any difficulty and was gradually advanced into the stomach and duodenum and carefully examined. The bulb and second part of the duodenum appeared normal. The scope was then withdrawn into the stomach adequately insufflated with air and upon careful examination the antrum had scattered erosions and biopsies were done from this area. Mucosa of the body, cardia and fundus appeared normal. The scope was then withdrawn into the esophagus. The GE junction was located at 40 cm to the incisors. It appeared regular with no erythema erosions or ulcerations. Rest of the esophagus appeared normal. Patient tolerated the procedure well. At this time the patient continued to remain sedation. Initial digital rectal examination was normal. Olympus CF 160 video colonoscope was then inserted into the rectum and gradually advanced to the cecum without any difficulty. Careful examination was performed as the scope was gradually being withdrawn. The prep was excellent. The cecum, ascending colon, transverse colon, descending colon, sigmoid colon and rectum appeared normal. Retroflexion was performed in the rectum and no lesions were noted. Patient tolerated the procedure well. Impression: 1. Upper endoscopy revealed antral erosive gastritis but no evidence of esophag itis or peptic ulcer disease 2. Colonoscopy was within normal limits with no evidence of colorectal neoplasia Recommendations: Findings of this examination were discussed with the patient as well as her family. She was advised to follow-up with the biopsy results. Continue with Pepcid as needed and follow antireflux measures. Recommended repeat screening colonoscopy in 5 years because of the family history of colon cancer
[2024-07-05 09:05] VITALS: BP 114/76; PULSE 84
== END 2024-07-05 09:30 | disposition home or self-care (01) ==
LOC: ORWHC2ENDO 07:25
PROVIDERS: ATTEND Internal Medicine Gastroenterology
DX: Z12.11 Encounter for screening for malignant neoplasm of colon (principal); K29.50 Unspecified chronic gastritis without bleeding; K21.9 Gastro-esophageal reflux disease without esophagitis; E78.5 Hyperlipidemia, unspecified; M19.90 Unspecified osteoarthritis, unspecified site; F32.A Depression, unspecified; F41.9 Anxiety disorder, unspecified; M54.2 Cervicalgia; Z86.718 Personal history of other venous thrombosis and embolism; Z80.0 Family history of malignant neoplasm of digestive organs; Z88.5 Allergy status to narcotic agent; Z79.899 Other long term (current) drug therapy
CPT/HCPCS: 81025; 45378; 43239; J2003; J2704; 88305